=== PATIENT | male | born 1985 | race Caucasian/White ===

== ENCOUNTER 2018-08-14 16:54 | Emergency (ER) | payer OTHER ==
[~2018-08-14] VITALS: Ht 157.5 cm; Wt 70.8 kg
[2018-08-14 17:23] VITALS: Ht 157.5 cm; Wt 70.8 kg
[2018-08-14 17:57] VITALS: BP 136/84
== END 2018-08-14 17:57 | disposition home or self-care (01) ==
LOC: ED 16:54
DX: S00.83XA Contusion of other part of head, initial encounter (principal); E11.9 Type 2 diabetes mellitus without complications; W20.8XXA Other cause of strike by thrown, projected or falling object, initial encounter; Y93.89 Activity, other specified; Y92.89 Other specified places as the place of occurrence of the external cause; Y99.0 Civilian activity done for income or pay